=== PATIENT | female | born 1955 | race African-American/Black ===

== ENCOUNTER 2016-12-23 15:52 | Emergency (ER) | payer MEDICARE, MEDICAID ==
[~2016-12-23] VITALS: Ht 152.4 cm; Wt 72.6 kg
[~2016-12-23 15:52] MED LIST: ADVAIR 250-501 EACH INH; CALCIUM + VIT1 EACH PO; LEVAQUIN500 MG ORAL; MACROBID100 MG ORAL; MEDROL DOSEPAK4 MG ORAL; METFORMIN HCL500 M1 ORAL; NORCO 5-325 TA1 EACH ORAL; NORVASC5 MG ORAL; PREDNISONE1 MG PO; PREDNISONE10 MG ORAL; PREDNISONE5 MG ORAL; PROAIR HFA8.5 GM INH; SINGULAIR10 MG ORAL; SOMA350 MG PO; SYMBICORT2 PUFF1 INH
[2016-12-23] MEDS ORDERED: Cephalexin 500mg cap ORAL ONE (16:30)
[2016-12-23] MEDS ORDERED: IBUPROFEN600 MG ORAL (16:34)
[2016-12-23] MEDS ORDERED: CEPHALEXIN500 MG ORAL (16:34)
[2016-12-23 17:09] VITALS: BP 131/90
--- NOTE | 2016-12-23 23:17 | Emergency Room Report ---
History of Present Illness General Chief Complaint: Skin Rash/Abscess Source: Patient Present Illness [facility] The patient is a 61-year-old female presenting for insect bite to the left breast.she states that she noticed a red marco antonio on the left breast one hour prior which has been increasing in size.Pain is described as a 9/10 dull ache and does not radiate. Pain worse with touch. She denies nipple discharge. She denies fever or chills. She denies any other lesions or rashes Allergies: Coded Allergies: NO KNOWN DRUG ALLERGIES (Unverified Allergy, Unknown, 08/04/14) Patient History Past Medical History: see triage record Pertinent Family History: none Last Menstrual Period: na Reviewed Nursing Documentation: PMH: Agreed, PSxH: Agreed Nursing Documentation-PMH Past Medical History: No History, Except For Hx Cardiac Problems: Yes - chf Hx Hypertension: Yes Hx Asthma: Yes Hx COPD: Yes Hx Diabetes: Yes Hx Cancer: No Hx Gastrointestinal Problems: No Hx Neurological Problems: Yes - Degenerative disc disease Review of Systems All Other Systems: negative except mentioned in HPI Physical Exam Vital Signs Date Time Temp Pulse Resp B/P Pulse Ox O2 Delivery O2 Flow Rate FiO2 12/23/16 16:03 99.3 99 18 131/90 96 Room Air Sp02 EP Interpretation: reviewed, normal General Appearance: no apparent distress, alert, GCS 15, non-toxic Head: normocephalic, atraumatic Eyes: bilateral eye PERRL, bilateral eye normal inspection ENT: hearing grossly normal, normal pharynx, no angioedema, normal voice Respiratory: chest non-tender, lungs clear, normal breath sounds, speaking full sentences Cardiovascular #1: regular rate, rhythm, no edema Musculoskeletal: back normal, gait/station normal, normal range of motion, non- tender Neurologic: alert, oriented x3, responsive, motor strength/tone normal, sensory intact, speech normal Psychiatric: judgement/insight normal, memory normal, mood/affect normal, no suicidal/homicidal ideation Skin: normal turgor, rash - There is a 2cm in diameter erythematous lesion to the upper mid L breast with a erythematous streak inferiorly Lymphatic: no adenopathy Medical Decision Making PA Attestation Dr. Lucas is my supervising physician. Patient management was discussed with my supervising physician Diagnostic Impression: Primary Impression: Cellulitis Qualified Codes: L03.818 - Cellulitis of other sites ER Course The patient is a 61-year-old female presenting for insect bite to the left breast Ddx considered include but not limited to insect bite, contact dermatitis, eczema, cellulitis Physical exam: Afebrile. No apparent distress There is an erythematous lesion of the left upper mid-breast with a erythematous streak. Tender to palpation. There is a central lesion surrounded by erythema. The patient is given Keflex in the emergency department and will be discharged home with the same. ER precautions given Last Vital Signs Date Time Temp Pulse Resp B/P Pulse Ox O2 Delivery O2 Flow Rate FiO2 12/23/16 17:09 99.3 18 131/90 96 Room Air 12/23/16 16:03 99 Status: improved Disposition: HOME, SELF-CARE Condition: Improved Scripts Ibuprofen* (MOTRIN*) 600 Mg Tablet 600 MG ORAL Q8H Y for For Pain, #30 TAB 0 Refills Prov: BILL SOTO 12/23/16 Cephalexin* (KEFLEX*) 500 Mg Capsule 500 MG ORAL EVERY 6 HOURS, #28 CAP Prov: BILL SOTO 12/23/16 Referrals: [facility],REFERRING (PCP) Patient Instructions: Cellulitis Additional Instructions: I discussed my findings with the patient. All questions and concerns have been answered. Treatment and medication compliance have been addressed. I advised the patient that they need to follow up with PMD in 3-5 days. Return to ED if symptoms worsen, new symptoms arise, or if needed for any reason. Patient verbalized understanding of discharge instructions. BILL SOTO Dec 23, 2016 23:17
== END 2016-12-23 17:13 | disposition home or self-care (01) ==
LOC: EMR 16:40
DX: L03.818 Cellulitis of other sites (principal); I10 Essential (primary) hypertension; E11.9 Type 2 diabetes mellitus without complications; J44.9 Chronic obstructive pulmonary disease, unspecified
CPT/HCPCS: 99284

== ENCOUNTER 2017-02-08 18:00 | Observation (INO) | payer MEDICARE, MEDICAID ==
[~2017-02-08] VITALS: Ht 152.4 cm; Wt 77.6 kg
[~2017-02-08 18:00] MED LIST changes: +CEPHALEXIN500 MG ORAL; +IBUPROFEN600 MG ORAL
[2017-02-08] MEDS ORDERED: Solu-MEDROL 125mg Inj IVP ONE (18:15)
[2017-02-08] MEDS: Ipratropium 0.02% Inh Soln 2.5ml UD HHN SCH ×2 (18:20→19:49)
[2017-02-08] MEDS: Albuterol ud Inhalation HHN SCH ×2 (18:20→19:49)
[2017-02-08 18:27] LABS: BASOPHILS % (AUTO) 1.7 % (0.0-2.0); EOSINOPHILS % (AUTO) 5.9 % (0.0-3.0); LYMPHOCYTES % (AUTO) 41.6 % (20.0-45.0); MEAN CORPUSCULAR HEMOGLOBIN 30.2 PG (27.0-31.0); MEAN CORPUSCULAR HGB CONC 33.8 G/DL (32.0-36.0); MEAN CORPUSCULAR VOLUME 89 FL (80-99); MEAN PLATELET VOLUME 7.6 FL (6.5-10.1); MONOCYTES % (AUTO) 7.1 % (1.0-10.0); NEUTROPHILS % (AUTO) 43.7 % (45.0-75.0); PLATELET COUNT 165 K/UL (150-450); RED BLOOD COUNT 4.04 M/UL (4.20-5.40); RED CELL DISTRIBUTION WIDTH 13.7 % (11.6-14.8); WHITE BLOOD COUNT 6.6 K/UL (4.8-10.8)
[2017-02-08 18:35] VITALS: BP 141/97
[2017-02-08 18:49] LABS: TROPONIN I < 0.30 ng/mL (<=0.30)
[2017-02-08 18:53] LABS: ALANINE AMINOTRANSFERASE 14 U/L (3-33); ALBUMIN/GLOBULIN RATIO 1.9 (1.0-2.7); ANION GAP 13 (5-15); ASPARTATE AMINO TRANSFERASE 16 U/L (5-40); CALCIUM 9.2 mg/dL (8.6-10.2); CARBON DIOXIDE 26 mEQ/L (20-30); CHLORIDE 100 mEQ/L (98-107); CREATININE 0.8 mg/dL (0.5-0.9); GLOMERULAR FILTRATION RATE > 60 mL/min (>60); HEMOLYSIS 14; POTASSIUM 4.1 mEQ/L (3.4-4.9); SODIUM 139 mEQ/L (135-145); TOTAL PROTEIN 6.7 g/dL (6.6-8.7)
[2017-02-08 18:54] LABS: ABG BASE EXCESS -0.3; ABG PCO2 45.1 mmHg (35.0-45.0)
[2017-02-08 18:55] LABS: ABG ALLEN TEST POSITIVE
[2017-02-08] MEDS ORDERED: Morphine Sulfate 4mg/ml Inj IVP ONE ×2 (19:00→21:00)
[2017-02-08 19:03] LABS: CKMB 2.5 ng/mL (< 3.8)
[2017-02-08 19:08] LABS: REFLEX LACTIC ACID YES OR NO YES
[2017-02-08] MEDS ORDERED: AMLODIPINE BESY10 MG ORAL (19:18)
[2017-02-08] MEDS ORDERED: NORCO 10-325 T1 EACH ORAL (19:20)
[2017-02-08] MEDS ORDERED: VITAMIN D32000 UNI2 PO (19:25)
[2017-02-08] MEDS ORDERED: OYSTER SHELL C500 MG PO (19:26)
[2017-02-08] MEDS ORDERED: ICY HOT1 EAC1 TP (19:27)
[2017-02-08 19:35] VITALS: BP 136/94
[2017-02-08 19:57] LABS: APPEARANCE,URINE CLEAR; KETONES,URINE NEGATIVE (NEGATIVE); LEUKOCYTE ESTERASE ,URINE 3+ (NEGATIVE); NITRITE,URINE NEGATIVE (NEGATIVE); PH,URINE 5 (4.5-8.0); PROTEIN,URINE NEGATIVE (NEGATIVE); UROBILINOGEN,URINE NORMAL MG/DL (0.0-1.0)
[2017-02-08 20:04] LABS: BACTERIA,URINE FEW /HPF; SQUAMOUS EPITHELIAL CELL,UR OCCASIONAL /LPF (NONE/OCC)
--- NOTE | 2017-02-08 20:56 | Emergency Room Report ---
History of Present Illness General Chief Complaint: Asthma Source: Patient Present Illness HPI 61-year-old female presents ED for evaluation. Per EMS patient was extremely short of breath today at her house. Patient has history of asthma. Patient was placed on CPAP with breathing treatments. Per EMS patient was initially very tight but is since improved. Patient states she feels short of breath still but feels better. Denies any fevers or chills. Denies chest pain. No aggravating or leading factors. Denies any other associated symptoms Allergies: Coded Allergies: NO KNOWN DRUG ALLERGIES (Unverified Allergy, Unknown, 08/04/14) Patient History Past Medical History: DM, asthma, COPD Past Surgical History: none Pertinent Family History: none Social History: Denies: alcohol use, drug use, smoking Now: No Immunizations: UTD Reviewed Nursing Documentation: PMH: Agreed, PSxH: Agreed Nursing Documentation-PMH Past Medical History: No History, Except For Hx Cardiac Problems: Yes - chf Hx Hypertension: Yes Hx Asthma: Yes Hx COPD: Yes Hx Diabetes: Yes Hx Cancer: No Hx Gastrointestinal Problems: No Hx Neurological Problems: Yes - Degenerative disc disease Review of Systems All Other Systems: negative except mentioned in HPI Physical Exam Vital Signs Date Time Temp Pulse Resp B/P Pulse Ox O2 Delivery O2 Flow Rate FiO2 02/08/17 17:58 98.2 112 24 146/103 100 Simple Mask 02/08/17 18:22 100 02/08/17 19:54 3.0 Sp02 EP Interpretation: reviewed, normal General Appearance: alert, GCS 15, mild distress Head: normocephalic Eyes: bilateral eye PERRL, bilateral eye normal inspection ENT: normal ENT inspection Neck: normal inspection Respiratory: decreased breath sounds, wheezing Cardiovascular #1: regular rate, rhythm, no edema Gastrointestinal: normal inspection Rectal: deferred Genitourinary: no CVA tenderness Musculoskeletal: normal inspection Neurologic: alert, oriented x3, responsive, motor strength/tone normal, sensory intact, speech normal Psychiatric: normal inspection Skin: normal inspection Lymphatic: normal inspection Medical Decision Making Diagnostic Impression: Primary Impression: Acute asthma exacerbation Qualified Codes: J45.901 - Unspecified asthma with (acute) exacerbation ER Course Hospital Course 61-year-old F presenting to ED with SOB. h/o asthma Differential diagnoses include: Pneumonia, CHF exacerbation, pneumothorax, fluid overload Clinical course Patient placed on stretcher. On air sampling and monitoring with stable vitals. After initial history and physical, I ordered nebulizer treatments. I ordered labs, IV fluids, EKG, chest x-ray, blood cultures, UA. Labs - no leukocytosis noted, hemoglobin/hematocrit stable, electrolytes okay, lactate okay, troponins negative ABG ok EKG - NSR, no acute changes intpreted by me CXR - cardiomegaly. no infiltrates interpreted by me She is still wheezing despite treatment. Continuing breathing treatments, giving Solu-Medrol and magnesium Case discussed with Dr. Tidwell and he agreed to the patient to his service for further care and support I feel this is a highly complex case requiring extensive working including EKG/ Rhythm strip, Xray/CT/US, Blood/urine lab work, repeat exams while in ED, and administration of strong opiates/narcotics for pain control, admission to hospital or close patient follow up. Diagnosis - acute asthma exacerbation Patient admitted to telemetry in serious condition Labs Test 02/08/17 18:00 02/08/17 18:04 02/08/17 19:29 White Blood Count 6.6 K/UL (4.8-10.8) Red Blood Count 4.04 M/UL (4.20-5.40) Hemoglobin 12.2 G/DL (12.0-16.0) Hematocrit 36.1 % (37.0-47.0) Mean Corpuscular Volume 89 FL (80-99) Mean Corpuscular Hemoglobin 30.2 PG (27.0-31.0) Mean Corpuscular Hemoglobin Concent 33.8 G/DL (32.0-36.0) Red Cell Distribution Width 13.7 % (11.6-14.8) Platelet Count 165 K/UL (150-450) Mean Platelet Volume 7.6 FL (6.5-10.1) Neutrophils (%) (Auto) 43.7 % (45.0-75.0) Lymphocytes (%) (Auto) 41.6 % (20.0-45.0) Monocytes (%) (Auto) 7.1 % (1.0-10.0) Eosinophils (%) (Auto) 5.9 % (0.0-3.0) Basophils (%) (Auto) 1.7 % (0.0-2.0) Sodium Level 139 mEQ/L (135-145) Potassium Level 4.1 mEQ/L (3.4-4.9) Chloride Level 100 mEQ/L (98-107) Carbon Dioxide Level 26 mEQ/L (20-30) Anion Gap 13 (5-15) Blood Urea Nitrogen 14 mg/dL (7-23) Creatinine 0.8 mg/dL (0.5-0.9) Estimat Glomerular Filtration Rate > 60 mL/min (>60) Glucose Level 146 mg/dL (74-106) Lactic Acid Level 2.00 mmol/L (0.66-2.22) Calcium Level 9.2 mg/dL (8.6-10.2) Total Bilirubin < 0.2 mg/dL (0.0-1.2) Aspartate Amino Transf (AST/SGOT) 16 U/L (5-40) Alanine Aminotransferase (ALT/SGPT) 14 U/L (3-33) Alkaline Phosphatase 67 U/L (35-104) Total Creatine Kinase 142 U/L (26-140) Creatine Kinase MB 2.5 ng/mL (< 3.8) Creatine Kinase MB Relative Index 1.7 Troponin I < 0.30 ng/mL (<=0.30) Pro-B-Type Natriuretic Peptide 127 pg/mL (0-125) Total Protein 6.7 g/dL (6.6-8.7) Albumin 4.4 g/dL (3.5-5.2) Globulin 2.3 g/dL Albumin/Globulin Ratio 1.9 (1.0-2.7) Arterial Blood pH 7.360 (7.350-7.450) Arterial Blood Partial Pressure CO2 45.1 mmHg (35.0-45.0) Arterial Blood Partial Pressure O2 105.0 mmHg (75.0-100.0) Arterial Blood HCO3 25.3 mmol/L (22.0-26.0) Arterial Blood Oxygen Saturation 97.6 % (92.0-98.0) Arterial Blood Base Excess -0.3 Donnell Test Positive Urine Color Pale yellow Urine Appearance Clear Urine pH 5 (4.5-8.0) Urine Specific [place] 1.020 (1.005-1.035) Urine Protein Negative (NEGATIVE) Urine Glucose (UA) Negative (NEGATIVE) Urine Ketones Negative (NEGATIVE) Urine Occult Blood 1+ (NEGATIVE) Urine Nitrite Negative (NEGATIVE) Urine Bilirubin Negative (NEGATIVE) Urine Urobilinogen Normal MG/DL (0.0-1.0) Urine Leukocyte Esterase 3+ (NEGATIVE) Urine RBC 2-4 /HPF (0 - 2) Urine WBC 5-10 /HPF (0 - 2) Urine Squamous Epithelial Cells Occasional /LPF Urine Bacteria Few /HPF (NONE) EKG Diagnostic Results Rate: normal Rhythm: NSR ST Segments: no acute changes ASA given to the pt in ED: No Rhythm Strip Diag. Results EP Interpretation: yes Rhythm: NSR, no PVC's, no ectopy Chest X-Ray Diagnostic Results Chest X-Ray Diagnostic Results : Chest X-Ray Ordered: Yes # of Views/Limited/Complete: 1 View Indication: Shortness of Breath EP Interpretation: Yes Interpretation: no consolidation, no effusion, no pneumothorax Impression: No acute disease Interpreting ER Provider: Electronically signed by Alfonso Howard MD Last Vital Signs Date Time Temp Pulse Resp B/P Pulse Ox O2 Delivery O2 Flow Rate FiO2 02/08/17 20:16 100 14 100 Non-Rebreather 100 02/08/17 19:54 3.0 02/08/17 19:35 98.2 136/94 Status: improved Disposition: ADMITTED INPATIENT Condition: Serious Referrals: [facility],REFERRING (PCP) ALFONSO HOWARD M.D. Feb 08, 2017 20:55
[2017-02-08] MEDS ORDERED: Acetaminophen 650mg/20.3ml NG ONE (21:00)
[2017-02-08 21:28] VITALS: BP 136/88
[2017-02-08 22:11] VITALS: BP 128/96
[2017-02-09] VITALS: BP 127/79
[2017-02-09] MEDS ORDERED: CALCIUM CARBON500 M1 PO (00:16)
[2017-02-09] MEDS ORDERED: HYDROCODON-ACE1 EA13 ORAL (00:16)
[2017-02-09] MEDS ORDERED: VITAMIN D-32000 UNI1 PO (00:16)
[2017-02-09] MEDS: Albuterol ud Inhalation HHN SCH (00:17)
[2017-02-09] MEDS: Ipratropium 0.02% Inh Soln 2.5ml UD HHN SCH (00:17)
[2017-02-09] MEDS ORDERED: Norco 10mg/325mg tab ORAL PRN (00:30)
[2017-02-09] MEDS ORDERED: Albuterol 90mcg Inhaler 8gm INH PRN (00:30)
[2017-02-09] MEDS: DuoNeb 0.5-3(2.5)mg/3ml neb HHN SCH ×2 (01:00→07:31)
[2017-02-09 04:30] VITALS: BP 149/99
[2017-02-09] MEDS ORDERED: Solu-MEDROL 40mg Inj IVP SCH (06:00)
[2017-02-09 08:00] VITALS: BP 131/90
[2017-02-09] MEDS ORDERED: Advair 250/50 Inhaler - 14 dose INH SCH (09:00)
[2017-02-09] MEDS ORDERED: metFORMIN 500mg tab ORAL SCH (09:00)
--- NOTE | 2017-02-09 09:13 | Diagnostic Imaging Report ---
Indication: SOB Technique: XRAY CHEST 1 V Comparison: 03/01/2015. Findings: The cardiomediastinal silhouette is normal. The lungs are clear. There is no evidence of pleural fluid. The bones are unremarkable. Impression: Normal chest.
[2017-02-09] MEDS ORDERED: LEVAQUIN500 MG ORAL (09:31)
[2017-02-09] MEDS ORDERED: MEDROL4 MG ORAL (09:31)
[2017-02-09] MEDS ORDERED: Norco 5mg/325mg tab ORAL ONE (09:40)
[2017-02-09 10:28] VITALS: BP 131/90
[2017-02-09] MEDS ORDERED: Tubing IV Secondary IV ONE (11:14)
[2017-02-09] MEDS ORDERED: NS 275ml ONE (11:14)
--- NOTE | 2017-02-09 11:15 | History and Physical Report ---
DATE OF ADMISSION: 02/08/2017 HISTORY OF PRESENT ILLNESS: This is a 61-year-old female, who came to the hospital with shortness of breath. The patient has a history of asthma. She was placed on a CPAP with improvement. She failed to improve in the emergency room despite multiple breathing treatments and was admitted to the telemetry unit on CPAP. PAST MEDICAL HISTORY: History of diabetes mellitus, asthma, COPD, and questionable hypertension. PREVIOUS SURGICAL HISTORY: None. FAMILY HISTORY: Noncontributory. SOCIAL HISTORY: Denies alcohol or tobacco usage. No substance abuse reported. REVIEW OF SYSTEMS: She denies any headaches, hematemesis, melena, hematochezia, night sweats, or weight loss. MEDICATIONS: Her list of home medications includes Soma, Norvasc, Os-Franck, Advair, and Glucophage. PHYSICAL EXAMINATION: GENERAL: Revealed a 61-year-old female. HEENT: Unremarkable. VITAL SIGNS: Blood pressure is 130/90, heart rate 104, and respirations are 20. Oxygen saturation 97% on 2 liters of oxygen. She is afebrile. CHEST: Shows clear breath sounds bilaterally. ABDOMEN: Soft. There is no edema. NEUROLOGICAL: Nonfocal. DIAGNOSTIC DATA: X-ray of chest is unremarkable. LABORATORY DATA: Lab testing shows normal CBC and BMP. Lactic acid is 2. IMPRESSION: 1. Exacerbation of bronchial asthma. 2. Hypertension. 3. Diabetes mellitus. DISCUSSION: Admit to the hospital. Start Solu-Medrol, bronchodilators, antibiotics, and home medications. We will follow as wire inspector. Derek Tidwell M.D. DR: ELIANE JOB#: [id number] CC:
--- NOTE | 2017-02-09 16:19 | Cardiology Report ---
APPROVED REPORT EKG Measurement Heart [id number] Normal sinus rhythm Low voltage QRS Cannot rule out Anterior infarct, age undetermined Abnormal ECG
== END 2017-02-09 11:15 | disposition home or self-care (01) ==
LOC: EDSEX 18:00 → EDBD 18:00 → EMR 18:48 → 2E 19:00 → EDBEDREQ 20:11
DX: J45.901 Unspecified asthma with (acute) exacerbation (principal); J44.9 Chronic obstructive pulmonary disease, unspecified; I10 Essential (primary) hypertension; E11.9 Type 2 diabetes mellitus without complications; I50.9 Heart failure, unspecified; M19.90 Unspecified osteoarthritis, unspecified site; I51.7 Cardiomegaly; Z79.84 Long term (current) use of oral hypoglycemic drugs
CPT/HCPCS: 36415; 36600; 71010; 80053; 81003; 82550; 82553; 82803; 83605; 83880; 84484; 85025; 87040; 93005; 94640 ×2; 94664; 96365; 96374; 96375 ×2; 99285; G0378 ×2; J1956; J2270; J2920; J2930; J7050; J7620